=== PATIENT | male | born 1960 | race Caucasian/White ===

== ENCOUNTER 2017-01-07 18:45 | Emergency (ER) | payer OTHER ==
[2017-01-07 18:54] VITALS: BP 120/88; PULSE 85; TEMP 98.5; BMI 28.3
--- NOTE | 2017-01-07 19:11 | PDOC ---
History of Present Illness - General History Source: Patient, Family Exam Limitations: No Limitations - History of Present Illness Initial Comments: 01/07/17 20:08 The patient is a 56 year old male, with no significant past medical history, who presents today complaining of LLQ pain and tingling in the left leg for 1 week. He states that the LLQ pain and tingling began simultaneously. The abdominal pain is not exacerbated or alleviated by any factors. He notes one episode of diarrhea last week. He reports that the tingling is constant and travels down the anterior side of his left leg. He describes it as his leg fell asleep. He cannot recall what he was doing on the onset of the LLQ pain and tingling 1 week ago; however, he notes that he does heavy lifting at work. He denies dysuria or hematuria, but reports 1 episode of dark urine last week. No back pain. No fever, chills, nausea, vomiting. No constipation. No chest pain, SOB. Allergies: none reported PCP- Dr. Edwar Christensen <Marilyn Miller - Last Filed: 01/07/17 21:22> <Deneen Rain - Last Filed: 01/08/17 06:05> - General Chief Complaint: Pain, Acute Stated Complaint: LEFT LOWER ABD PAIN Time Seen by Provider: 01/07/17 19:09 Past History <Marilyn Miller - Last Filed: 01/07/17 21:22> - Past Medical History Diabetes: No GI Disorders: No Disorders: No Other medical history: DENIES - Psycho/Social/Smoking Cessation Hx Anxiety: No Suicidal Ideation: No Smoking Status: No Smoking History: Never smoked Have you smoked in the past 12 months: No Number of Cigarettes Smoked Daily: 0 Cigars Per Day: 0 Hx Alcohol Use: Yes Drug/Substance Use Hx: No Substance Use Type: Alcohol <Deneen Rain - Last Filed: 01/08/17 06:05> - Past Medical History Allergies/Adverse Reactions: Allergies Allergy/AdvReac Type Severity Reaction Status Date / Time No Known Allergies Allergy Verified 01/07/17 18:46 Home Medications: Ambulatory Orders NK [No Known Home Medication] 01/07/17 Review of Systems - Review of Systems Able to Perform ROS?: Yes Comments:: 08/10/17 20:08 CONSTITUTIONAL: Absent: fever, no chills, no fatigue EYES: Absent: visual changes ENT: Absent: ear pain, no sore throat CARDIOVASCULAR: Absent: chest pain, no palpitations RESPIRATORY: Absent: cough, no SOB GI: Present: LLQ abdominal pain, 1 episode of diarrhea Absent: no nausea, no vomiting, no constipation. GENITOURINARY: Absent: dysuria, no frequency, no hematuria MUSCULOSKELETAL: Present: tingling in the left lower extremity. Absent: back pain, no arthralgia, no myalgia SKIN: Absent: rash NEURO: Absent: headache <Marilyn Miller - Last Filed: 01/07/17 21:22> *Physical Exam - Vital Signs Last Vital Signs Temp Pulse Resp BP Pulse Ox 98.5 F 85 18 120/88 100 01/07/17 18:46 01/07/17 18:46 01/07/17 18:46 01/07/17 18:46 01/07/17 18:46 - Physical Exam Comments: 01/07/17 20:09 GENERAL: The patient is awake, alert, and fully oriented, in no acute distress. HEAD: Normal with no signs of trauma. EYES: Pupils equal, round and reactive to light, extraocular movements intact, sclera anicteric, conjunctiva clear with no pallor. ENT: Ears normal, nares patent, oropharynx clear without exudates. Moist mucous membranes. NECK: Normal range of motion, supple without lymphadenopathy, JVD, or masses. LUNGS: Breath sounds equal, clear to auscultation bilaterally. No wheeze/ crackles. HEART: Regular rate and rhythm, normal S1 and S2 without murmur or rub. ABDOMEN: Mild left mid abdominal and lower quadrant tend without peritoneal signs or masses palpated. Soft/nondistended. BS wnl. No guarding or rebound. No hepatosplenomegaly. EXTREMITIES: Normal range of motion, no edema. No clubbing or cyanosis. No cords, erythema, or tenderness. NEUROLOGICAL: Cranial nerves II through XII grossly intact. Normal speech, normal gait. PSYCH: Normal mood, normal affect. SKIN: Warm, Dry, normal turgor, no rashes or lesions noted. <Marilyn Miller - Last Filed: 01/07/17 21:22> - Vital Signs Last Vital Signs Temp Pulse Resp BP Pulse Ox 98.5 F 85 18 120/88 100 01/07/17 18:46 01/07/17 18:46 01/07/17 18:46 01/07/17 18:46 01/07/17 18:46 <Deneen Rain - Last Filed: 01/08/17 06:05> ED Treatment Course - LABORATORY CBC & Chemistry Diagram: 01/07/17 20:06 01/07/17 20:06 <Marilyn Miller - Last Filed: 01/07/17 21:22> - LABORATORY CBC & Chemistry Diagram: 01/07/17 20:06 01/07/17 20:06 <Deneen Rain - Last Filed: 01/08/17 06:05> Progress Note - Progress Note Progress Note: Documentation has been prepared under my direction and personally reviewed by me in its entirety. I attest that this documented accurately reflects all work, treatment, procedures and medical decision making performed by me. <Deneen Rain - Last Filed: 01/08/17 06:05> Medical Decision Making - Medical Decision Making As noted above, this otherwise healthy 56-year-old man presents with a several day history of mild left flank/mid abdominal pain and paresthesias of the proximal thigh. There are no other neurologic symptoms and patient has no associated symptoms related to his abdominal pain. Exam as noted above. Urinalysis/CBC/chemistry profile were sent. Laboratory evaluation is essentially normal. Results were discussed with the patient. His abdominal discomfort/minimal tenderness unlikely to represent acute pathologic process. He should follow-up with his general doctor (Dr. Edwar Christensen) within the next several days. He should return to the emergency room if symptoms worsen. Meanwhile, he should attempt to use loose her balance in case his paresthesias are related to meralgia paresthetica <Deneen Rain - Last Filed: 01/08/17 06:05> *DC/Admit/Observation/Transfer - Attestations Scribe Attestion: 01/07/17 20:09 Documentation prepared by SIRISHA Munguia, acting as medical administrative technician for Deneen Rain MD. <Marilyn Miller - Last Filed: 01/07/17 21:22> <Deneen Rain - Last Filed: 01/08/17 06:05> Diagnosis at time of Disposition: Abdominal discomfort in left flank, Meralgia paresthetica of left side - Discharge Dispostion Disposition: HOME Condition at time of disposition: Stable - Referrals Referrals: Edwar Christensen MD [Staff Physician] - 1 week - Patient Instructions Printed Discharge Instructions: DI for Flank Pain Additional Instructions: drink plenty of water ibuprofen/acetaminophen/naproxen as needed for pain avoid tight belts return to ER if you worsening pain or develop fever/vomiting followup with Dr Christensen within 5 days
[2017-01-07 20:21] LABS: BASOPHIL 1.1 % (0-2.0); EOSINOPHIL 2.1 % (0-4.5); MCH 30.4 pg (25.7-33.7); MCHC 34.9 g/dl (32.0-35.9); MEAN CELL VOLUME 86.9 fl (80-96); MEAN PLT VOLUME 8.5 fl (7.5-11.1); NEUTROPHILS 64.4 % (42.8-82.8); PLATELET COUNT 246 K/MM3 (134-434); RDW 12.6 % (11.9-15.9); WHITE BLOOD COUNT 5.3 K/mm3 (4.0-10.8)
[2017-01-07 20:22] LABS: PH,URINE 5.5 (4.5-8); URINE APPEARANCE Clear; URINE BILIRUBIN Negative (NEGATIVE); URINE BLOOD Negative (NEGATIVE); URINE COLOR YELLOW; URINE GLUCOSE (UA) Negative (NEGATIVE); URINE KETONE Negative (NEGATIVE); URINE LEUK ESTERASE Negative (NEGATIVE); URINE NITRITE Negative (NEGATIVE); URINE PROTEIN Trace (NEGATIVE); URINE UROBILINOGEN 0.2 (0.2-1.0)
[2017-01-07 20:34] LABS: ALK PHOS 83 U/L (32-92); ANION GAP 7 (8-16); CALCIUM 8.7 mg/dl (8.4-10.2); CO2 26 mmol/L (22-28); CREATININE 0.9 mg/dl (0.6-1.3); GLUCOSE,RANDOM 105 mg/dl (74-106); SGOT/AST 27 U/L (10-42); SGPT/ALT 33 U/L (10-40); TOT PROT 6.4 g/dl (6.4-8.3)
[2017-01-07 21:13] LABS: BILIRUBIN,TOTAL < 0.3 mg/dl (0.2-1.0)
== END 2017-01-07 21:27 | disposition home or self-care (01) ==
LOC: FER 18:45
DX: G57.12 Meralgia paresthetica, left lower limb (principal); R10.32 Left lower quadrant pain
CPT/HCPCS: 36415; 80053; 81003; 85025; 99283-25